=== PATIENT | female | born 1985 | race Caucasian/White ===

== ENCOUNTER 2016-09-13 03:13 | Inpatient (IN) | payer OTHER ==
[2016-09-13 05:32] LABS: Hematocrit 31 % (35-47); Hemoglobin 10.4 g/dl (12.0-16.0); Mean Corpuscular HGB Conc 34 g/dl (31-36); Mean Corpuscular Hemoglobin 29 pg (27-31); Mean Corpuscular Volume 85 fL (80-97); Mean Platelet Volume 10 um3 (7.4-10.4); Red Blood Count 3.63 10^6/ul (4.0-5.4); Red Cell Distribution Width 13 % (10.5-15); White Blood Count 6.3 10^3/ul (3.5-10.8)
[2016-09-13] MEDS ORDERED: OBEPIDURAL* 250 ML ONE (05:33)
[2016-09-13] MEDS ORDERED: TERBUTALINE 2.5 MG ONE (07:33)
[2016-09-13] MEDS ORDERED: Terbutaline INJ* 1 MG/ML VIAL SUBCUT ONE (07:33)
[2016-09-13] MEDS ORDERED: Terbutaline INJ* 1 MG/ML VIAL ONE (07:35)
[2016-09-13] MEDS ORDERED: Sodium Citrate/Citric Acid* 15 ML UDC ONE (07:40)
[2016-09-13] MEDS ORDERED: Clindamycin 900 MG IVPREMIX(* 900 MG/50 ML SDV IV ONE (08:00)
[2016-09-13] MEDS ORDERED: Gentamicin ADULT (*) 80 MG in NS 0.9% 100 ML* 100 ML IVPB ONE (08:00)
[2016-09-13] MEDS ORDERED: Ondansetron INJ* 2 MG/ML VIAL ONE (08:03)
[2016-09-13] MEDS ORDERED: Phenylephrine IV* 40 MCG/ML 10 ML SYRINGE ONE ×2 (08:04→08:28)
[2016-09-13] MEDS ORDERED: OXYTOCIN* 10 UNITS/ML 1 ML VIAL ONE ×2 (08:18→08:34)
[2016-09-13] MEDS ORDERED: Morphine PF AMP (0.5MG/ML)* 5 MG/10 ML AMP ONE (08:25)
[2016-09-13] MEDS ORDERED: Glycerin ADULT SUPP PR PRN (08:52)
[2016-09-13] MEDS ORDERED: Zolpidem TAB* 5 MG PO PRN (08:52)
[2016-09-13] MEDS ORDERED: Witch Hazel PAD* JAR TOPICAL PRN (08:52)
[2016-09-13] MEDS ORDERED: Acetaminophen TAB* 325 MG PO PRN (08:52)
[2016-09-13] MEDS ORDERED: Dibucaine 1% 28.35 GM TUBE PR PRN (08:52)
[2016-09-13] MEDS ORDERED: DiMENhydriNATE IV* 50 MG/ML VIAL IV PUSH PRN (09:03)
[2016-09-13] MEDS ORDERED: Ketorolac INJ* 30 MG/ML 1 ML VIAL IV PRN (09:03)
[2016-09-13] MEDS ORDERED: Ondansetron INJ* 2 MG/ML VIAL IV PRN (09:04)
[2016-09-13] MEDS ORDERED: Naloxone* 2 MG in NS 0.9% 250 ML* 250 ML IV PRN (09:04)
[2016-09-13] MEDS ORDERED: oxyCODONE/Acetamin 5/325 MG* TAB PO PRN (09:04)
[2016-09-13] MEDS ORDERED: Naloxone* 0.4 MG/ML 1 ML VIAL IV PRN (09:04)
[2016-09-13] MEDS ORDERED: diPHENhydraMINE IV* 50 MG/ML 1 ml VIAL (BENADRYL) IV PRN (09:04)
[2016-09-13] MEDS: Ketorolac INJ* 30 MG/ML 1 ML VIAL IV PRN (09:38)
--- NOTE | 2016-09-13 12:36 | OP ---
OPERATIVE REPORT: DATE OF OPERATION: 09/13/16 DATE OF : 83 SURGEON: Dr. Hernandez. POULTRY VACCINATOR: Yecenia Huynh, certified nuclear medicine technologist. ANESTHESIA: Epidural. PRE-OP DIAGNOSIS: Uterine at term with a non-stable lie, breech presentation and labor. POST-OP DIAGNOSIS: Cesar breech and labor. OPERATIVE PROCEDURE: Primary low-transverse section. ESTIMATED BLOOD LOSS: 700 cc. URINE OUTPUT: 500 cc. FLUIDS: She received 4 L of IV crystalloid fluid. FINDINGS: Findings on delivery were that of a viable male and cesar breech presentation over meconium-stained fluid, weighing 6 pounds 12 ounces with Apgars of 8 and 9. The placenta was gross ly intact with a 3-vessel cord noted. The uterus, adnexa, bowel, and bladder were all within normal limits. There were no complication. SPECIMEN SENT TO PATHOLOGY: Cord blood and cord gas. DESCRIPTION OF PROCEDURE: The patient was taken to the operating room where she was identified. Matthieu landa was placed on the operating table where an epidural anesthetic was obtained without difficulty. S he was then placed in the supine position with a leftward tilt, prepped and draped in a normal steri le fashion. A Pfannenstiel skin incision was made with a knife and carried through the underlying l jerel of fascia. The fascia was then nicked in the midline and extended laterally with curved Raymond sc issors. The fascia was grasped superiorly and inferiorly with Humera clamps, dissected off sharply from the rectus muscle. The rectus muscle was in the midline bluntly. The peritoneum was identified, grasped with pickups and entered sharply with Metzenbaum scissors and extended laterall y bluntly. A bladder blade was inserted in the patient's abdomen. A bladder flap was then created using Metzenbaum scissors bladder blade was then reinserted. A low transverse uterine incisi on was made with a knife, extended laterally with bandage scissors and the was then delivered through a breech extraction. The cord was clamped and cut and infant was then handed off to the [facility] inspector eyeglass. Cord gases and cord bloods were obtained. The placenta was then removed manua lly. The uterus was then exteriorized, cleared of all clot and debris using moist laparotomy sponge s. The uterine incision was then closed using 0 Polysorb sutures in a running locked fashion with t he second imbricating layer of 0 Polysorb suture with good hemostasis noted. The uterus was then re turned to the patient's abdomen. The gutters were then cleaned off all clot and debris using moist laparotomy sponges. All the instruments were removed from the patient's abdomen. The incision of th e uterus was noted to be hemostatic. Sponge, lap, and needle counts were correct x1. The peritoneum was then closed using 3-0 Polysorb suture in a running fashion. The fascia was closed using 0 Poly sorb suture in a running fashion. The skin was closed with a 4-0 Monocryl in a subcuticular stitch. The patient tolerated the procedure well. Sponge, lap, and needle counts were correct x2. She wa s then transferred to recovery room area in stable condition. [id number]/[facility] #: [id number]
[2016-09-13] MEDS: Docusate CAP* 100 MG PO SCH ×2 (14:51→20:59)
[2016-09-13] MEDS: Simethicone TAB* 80 MG TAB.CHEW PO SCH ×3 (14:51→20:58)
[2016-09-14] MEDS ORDERED: oxyCODONE/Acetamin 5/325 MG* TAB PO PRN ×2 (01:04)
[2016-09-14] MEDS: Ketorolac INJ* 30 MG/ML 1 ML VIAL IV PRN ×2 (01:42→08:10)
[2016-09-14 07:07] LABS: Hematocrit 24 % (35-47); Hemoglobin 7.9 g/dl (12.0-16.0); Mean Corpuscular HGB Conc 34 g/dl (31-36); Mean Corpuscular Hemoglobin 29 pg (27-31); Mean Corpuscular Volume 85 fL (80-97); Mean Platelet Volume 10 um3 (7.4-10.4); Red Blood Count 2.76 10^6/ul (4.0-5.4); Red Cell Distribution Width 14 % (10.5-15)
[2016-09-14] MEDS ORDERED: Ferrous Gluconate TAB* 324 MG TAB ONE ×2 (08:05→13:42)
[2016-09-14] MEDS: Simethicone TAB* 80 MG TAB.CHEW PO SCH ×4 (08:09→20:24)
[2016-09-14] MEDS: Docusate CAP* 100 MG PO SCH ×3 (08:09→20:23)
[2016-09-14] MEDS ORDERED: Ferrous Gluconate TAB* 324 MG TAB PO SCH (09:00)
[2016-09-14] MEDS ORDERED: Ibuprofen TAB* 600 MG PO PRN (09:05)
[2016-09-14] MEDS: Ibuprofen ADULT LIQ* 600 MG/30 ML UDC PO PRN ×2 (14:21→22:32)
[2016-09-14] MEDS ORDERED: Acetaminophen ADULT LIQ* 650 MG/20.3 ML UDC PO PRN ×2 (17:12→17:23)
[2016-09-14] MEDS ORDERED: oxyCODONE ORAL.SOLN* 5 MG/5 ML UDC PO PRN (17:20)
[2016-09-14] MEDS: Acetaminophen ADULT LIQ* 650 MG/20.3 ML UDC PO PRN ×2 (17:42→22:33)
[2016-09-14] MEDS: oxyCODONE ORAL.SOLN* 5 MG/5 ML UDC PO PRN ×2 (17:43→22:35)
[2016-09-14] MEDS: Ferrous Gluconate TAB* 324 MG TAB PO SCH (20:23)
[2016-09-15] MEDS: oxyCODONE ORAL.SOLN* 5 MG/5 ML UDC PO PRN ×4 (04:09→21:21)
[2016-09-15] MEDS: Acetaminophen ADULT LIQ* 650 MG/20.3 ML UDC PO PRN ×4 (04:09→21:21)
[2016-09-15] MEDS: Simethicone TAB* 80 MG TAB.CHEW PO SCH ×4 (09:36→21:25)
[2016-09-15] MEDS: Ferrous Gluconate TAB* 324 MG TAB PO SCH ×2 (09:39→21:21)
[2016-09-15] MEDS: Docusate CAP* 100 MG PO SCH ×3 (09:39→21:21)
[2016-09-15] MEDS: Ibuprofen ADULT LIQ* 600 MG/30 ML UDC PO PRN ×2 (09:52→16:58)
[2016-09-16] MEDS: Ibuprofen ADULT LIQ* 600 MG/30 ML UDC PO PRN ×2 (01:41→08:33)
[2016-09-16] MEDS: oxyCODONE ORAL.SOLN* 5 MG/5 ML UDC PO PRN ×2 (01:42→08:40)
[2016-09-16] MEDS: Acetaminophen ADULT LIQ* 650 MG/20.3 ML UDC PO PRN (01:42)
[2016-09-16] MEDS: Ferrous Gluconate TAB* 324 MG TAB PO SCH (08:32)
[2016-09-16] MEDS: Simethicone TAB* 80 MG TAB.CHEW PO SCH (08:32)
[2016-09-16] MEDS: Docusate CAP* 100 MG PO SCH (08:32)
[2016-09-16 08:33] VITALS: BP 118/69
== END 2016-09-16 10:24 | disposition home or self-care (01) | DRG 540 ==
LOC: MCHOBOUT 03:13 → MCHOB 03:38
PROVIDERS: ADMIT Midwife; ATTEND Obstetrics & Gynecology
PROC: 10D00Z1 Extraction of Products of Conception, Low, Open Approach (ICD-10-PCS; principal; 2016-09-13 07:43)
DX: O32.1XX0 Maternal care for breech presentation, not applicable or unspecified (principal); D64.9 Anemia, unspecified; O77.0 Labor and delivery complicated by meconium in amniotic fluid; O90.81 Anemia of the puerperium; Z3A.38 38 weeks gestation of pregnancy; Z37.0 Single live birth
CPT/HCPCS: 36415; 76815; 85025; 86850; 86900; 86901; A9270-GY; J1580; J1885; J2405; J2590; J3105